=== PATIENT | male | born 1970 | race Caucasian/White ===

== ENCOUNTER 2021-11-21 00:05 | Inpatient (IN) | payer OTHER ==
[2021-11-21] MEDS ORDERED: SODIUM CHLORIDE 0.9% 1,000 ML IV STA (00:24)
[2021-11-21] MEDS ORDERED: Alteplase PER PHARMACY Stroke 1 EACH MISC MISCELLANE PRN (00:24)
--- NOTE | 2021-11-21 00:26 | ED ---
Neuro HPI - General Chief Complaint: Neuro Symptoms/Deficit Stated Complaint: Jaw Pain Time Seen by Provider: 11/21/21 00:19 Source: patient, RN notes reviewed, old records reviewed Mode of arrival: wheelchair Limitations: no limitations - History of Present Illness Is the patient presenting with stroke symptoms?: Yes Last Known Well Date: 11/20/21 Last Known Well Time: 21:00 -: hour(s) (3.5) Initial Comments: This is a 51-year-old male DF for evaluation patient has history of TIA with right-sided facial droop and drooling. Patient coming in today for evaluation of right-sided facial weakness and complete aphasia. Patient unable to answer questions he cannot has had in agreement she is had a disagreement. Patient has no weakness of arms or legs. Initial presents by private vehicle to EMS with significant other for evaluation. Patient's significant other [facility] 9 PM and came back to find patient in this condition with inability to speak and confusion. No change in symptoms since he began. Location: speech, right face History of same: No Place: home Severity: severe Quality: constant Worsens With: none On Anticoagulants: No Context: gradual onset Associated Symptoms: denies other symptoms Treatments Prior to Arrival: none - Related Data Home Medications: Home Medications Medication Instructions Recorded Confirmed QUEtiapine [SEROquel] 50 mg PO HS 02/09/15 02/11/15 Salmeterol 50 mcg (MHU) [Serevent 2 puff INHALATION DAILY PRN 02/09/15 02/11/15 Diskus] Allergies/Adverse Reactions: Allergies Allergy/AdvReac Type Severity Reaction Status Date / Time No Known Allergies Allergy Verified 11/21/21 00:21 Review of Systems ROS Statement: Those systems with pertinent positive or pertinent negative responses have been documented in the HPI. ROS Other: All systems not noted in ROS Statement are negative. General Exam - General Exam Comments Initial Comments: NIH of 10 Right facial droop with aphasia Limitations: no limitations General appearance: alert, in no apparent distress, anxious, in distress Head exam: Present: atraumatic, normocephalic, normal inspection Eye exam: Present: normal appearance, PERRL, EOMI. Absent: scleral icterus, conjunctival injection, periorbital swelling ENT exam: Present: normal exam, mucous membranes moist Neck exam: Present: normal inspection. Absent: tenderness, meningismus, lymphadenopathy Respiratory exam: Present: normal lung sounds bilaterally. Absent: respiratory distress, wheezes, rales, rhonchi, stridor Cardiovascular Exam: Present: regular rate, normal rhythm, normal heart sounds. Absent: systolic murmur, diastolic murmur, rubs, gallop, clicks GI/Abdominal exam: Present: soft, normal bowel sounds. Absent: distended, tenderness, guarding, rebound, rigid Extremities exam: Present: normal inspection, full ROM, normal capillary refill. Absent: tenderness, pedal edema, joint swelling, calf tenderness Back exam: Present: normal inspection Neurological exam: Present: alert, oriented X3, CN II-XII intact Psychiatric exam: Present: normal affect, normal mood Skin exam: Present: warm, dry, intact, normal color. Absent: rash Stroke MDM - Lab Data Result diagrams: 11/21/21 00:30 Lab Results 11/21/21 11/21/21 11/21/21 Range/Units 00:28 00:30 00:30 WBC 9.4 (3.8-10.6) k/uL RBC 4.78 (4.30-5.90) m/uL Hgb 14.8 (13.0-17.5) gm/dL Hct 43.9 (39.0-53.0) % MCV 91.9 (80.0-100.0) fL MCH 30.9 (25.0-35.0) pg MCHC 33.6 (31.0-37.0) g/dL RDW 13.2 (11.5-15.5) % Plt Count 305 (150-450) k/uL MPV 8.1 Neutrophils % 61 % Lymphocytes % 27 % Monocytes % 5 % Eosinophils % 3 % Basophils % 0 % Neutrophils # 5.7 (1.3-7.7) k/uL Lymphocytes # 2.6 (1.0-4.8) k/uL Monocytes # 0.5 (0-1.0) k/uL Eosinophils # 0.3 (0-0.7) k/uL Basophils # 0.0 (0-0.2) k/uL PT 10.4 (9.0-12.0) sec INR 0.9 (<1.2) APTT 25.8 (22.0-30.0) sec POC Glucose (mg/dL) 142 H (75-99) mg/dL POC Glu Customer Resource Specialist ID Chika Krueger - NIH Stroke Scale 1a. Level of Consciousness: (0) alert 1b. LOC Questions: (2) answers no questions correctly (Patient cannot has had but cannot speak to answer) 1c. LOC Commands: (0) performs tasks correctly 2. Best Gaze: (0) normal 3. Visual: (0) no visual loss 4. Facial Palsy: (2) partial paralysis (Right side of face) 5a. Motor Arm Left: (0) no drift 5b. Motor Arm Right: (0) no drift 6a. Motor Leg Left: (0) no drift 6b. Motor Leg Right: (0) no drift 7. Limb Ataxia: (0) absent 8. Sensory: (0) normal 9. Best Language: (un) mute/global aphasia 10. Dysarthria: (1) mild/moderate dysarthria 11. Extinction/Inattention: (0) no abnormality - Thrombolytic Inclusion/Exclusion Thrombolytic Inclusion Criteria: Symptom Onset < 4.5 h - Medical Decision Making 51 male to the emergency department for evaluation of acute CVA less than 3-1/2 hours of onset upon arrival to ER. Patient TPA candidate given TPA. Patient will be admitted for further evaluation by neurology and monitoring of TPA - Radiology Data Radiology results: report reviewed (CT brain negative for acute disease CTA may show early ischemia), image reviewed - EKG Data -: EKG Interpreted by Me (EKG is sinus rhythm 92 NV 136 QRS 86 QTc 407) Past Medical History Past Medical History: Asthma Additional Past Medical History / Comment(s): hx of TIA. Pts drooling on right side of face. Pt was last seen normal at History of Any Multi-Drug Resistant Organisms: None Reported Past Surgical History: No Surgical Hx Reported Past Anesthesia/Blood Transfusion Reactions: No Reported Reaction Past Psychological History: No Psychological Hx Reported Smoking Status: Current every day smoker Past Alcohol Use History: None Reported Past Drug Use History: Marijuana - Past Family History Mother Family Medical History: No Reported History Course Vital Signs 11/21/21 11/21/21 11/21/21 00:14 01:12 01:14 Temperature 98.5 F 98.2 F 98.2 F Pulse Rate 96 80 80 Respiratory 18 18 18 Rate Blood Pressure 152/87 151/94 145/94 O2 Sat by Pulse 98 98 98 Oximetry - Reevaluation(s) Reevaluation #1: 11/21/21 00:58 Medical record is reviewed Reevaluation #2: 11/21/21 00:58 Code Alteplace was placed on patient presentation in room with evaluation Reevaluation #3: 11/21/21 00:58 CT brain scan is negative we can go ahead with alteplase administration 11/21/21 00:58 Spoke with family member as well as patient at length, patient does wish to go forward with alteplase 11/21/21 01:25 Dr. Rodgers does agree to go forward with TPA Reevaluation #4: 11/21/21 01:25 Spoke with family regarding findings, questions are answered - Consultations Consultation #1: Spoke with sound who is agreeable to admit this patient Critical Care Time Critical Care Time: Yes Total Critical Care Time: 31 Disposition Clinical Impression: Cerebrovascular accident (CVA) Disposition: ADMITTED IP TO THIS [facility] Condition: Serious Is patient prescribed a controlled substance at d/c from ED?: No Referrals: None,Stated [Primary Care Provider] - 1-2 days
[2021-11-21 00:29] LABS: Glucose,Whole Blood 142 mg/dL (75-99)
[2021-11-21] MEDS ORDERED: ALTEPLASE 55 MG in EMPTY BAG 1 BAG IV STA (00:29)
[2021-11-21] MEDS ORDERED: ALTEPLASE BOLUS FOR STROKE 6 MG in EMPTY SYRINGE 1 SYR IV STA (00:29)
[2021-11-21 00:40] LABS: Basophils % (A) 0 %; Eosinophils # (A) 0.3 k/uL (0-0.7); Eosinophils % (A) 3 %; HCT 43.9 % (39.0-53.0); HGB 14.8 gm/dL (13.0-17.5); Lymphocytes # (A) 2.6 k/uL (1.0-4.8); Lymphocytes % (A) 27 %; MCH 30.9 pg (25.0-35.0); MCHC 33.6 g/dL (31.0-37.0); MCV 91.9 fL (80.0-100.0); Mean Platelet Volume 8.1; Monocytes # (A) 0.5 k/uL (0-1.0); Monocytes % (A) 5 %; Neutrophils # (A) 5.7 k/uL (1.3-7.7); Neutrophils % (A) 61 %; Platelet Count 305 k/uL (150-450); RBC 4.78 m/uL (4.30-5.90); RDW 13.2 % (11.5-15.5); WBC 9.4 k/uL (3.8-10.6)
--- NOTE | 2021-11-21 00:53 | CT ---
EXAMINATION TYPE: CT brain wo con for TPA DATE OF EXAM: 11/21/2021 COMPARISON: None HISTORY: stroke CT DLP: 1562.1 mGycm Automated exposure control for dose reduction was used. Ventricles have normal size. There is no mass effect or midline shift. There is no sign of intracrani al hemorrhage calvarium is intact. Skull base is intact. There is normal aeration of the mastoid sinu ses. IMPRESSION: Negative unenhanced head CT scan.
[2021-11-21 00:56] LABS: INR 0.9 (<1.2); Partial Thromboplastin Time 25.8 sec (22.0-30.0); Prothrombin Time 10.4 sec (9.0-12.0)
--- NOTE | 2021-11-21 00:57 | XR ---
EXAMINATION TYPE: XR chest 1V portable DATE OF EXAM: 11/21/2021 COMPARISON: NONE HISTORY: Weakness TECHNIQUE: Single view FINDINGS: Heart and mediastinum are normal. Lungs are clear. Diaphragm is normal. Bony thorax appears normal. IMPRESSION: Normal chest.
--- NOTE | 2021-11-21 01:17 | CT ---
EXAMINATION TYPE: CT angio head neck DATE OF EXAM: 11/21/2021 COMPARISON: None HISTORY: stroke CT DLP: 1562.1 mGycm Automated exposure control for dose reduction was used. CONTRAST: Performed with IV Contrast, patient injected with 65 mL of Isovue 370. Images obtained from the aortic arch to the vertex of the brain with IV contrast. There is bullous pulmonary emphysema noted at the upper lung acosta. There is normal branching patter n of the great vessels of the aortic arch. There is arterial flow in both subclavian arteries. There is arterial flow in the common internal and external carotid arteries bilaterally. There is wide wadsworth ncy of the carotid artery bifurcations. There is arterial flow in both vertebral arteries. There is n o evidence of carotid or vertebral artery aneurysm or dissection. There is no mass effect. There is arterial flow in the vertebral basilar artery system. There is arterial flow in the anterior middle and posterior cerebral arteries bilaterally. There is a very small A1 segment of the right an terior cerebral artery. The right anterior cerebral artery probably fills significantly through the a nterior communicating artery from the left side. There is no evidence of intracranial aneurysm or lee vascularity. There is normal enhancement of the venous sinuses. IMPRESSION: Negative CT angiogram of the neck. Small proximal right anterior cerebral artery with filling distally probably through the anterior co mmunicating artery. This is fusiform and not likely acquired stenosis.
[2021-11-21] MEDS ORDERED: MORPHINE SULFATE 4 MG/ML SYRINGE IV PRN (01:26)
[2021-11-21] MEDS ORDERED: NALOXONE 0.4 MG/ML 1 ML VIAL IV PRN (01:26)
[2021-11-21] MEDS ORDERED: SODIUM CHLORIDE 0.9% 50 ML MINI-BAG IV ONE ×2 (01:29→02:29)
[2021-11-21 01:38] LABS: Albumin 4.4 g/dL (3.5-5.0); Total Protein 7.5 g/dL (6.3-8.2)
[2021-11-21 01:39] LABS: Calcium 9.6 mg/dL (8.4-10.2); Potassium 4.1 mmol/L (3.5-5.1); Total Bilirubin 0.6 mg/dL (0.2-1.3)
[2021-11-21] MEDS: SODIUM CHLORIDE 0.9% 1,000 ML IV SCH ×3 (01:42→23:00)
--- NOTE | 2021-11-21 04:50 | P.HPIM ---
History of Present Illness H&P Date: 11/21/21 Chief Complaint: right facial droop, aphasia 51 year oldmale with moderate persistent asthma patient presented due to right sided facial weakness and aphasia. patient unable to provide any meaningful history . reports that this morning he reported some numbness over this right lower extremity . 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 he seemed to be fiine for the rest of the day, then around 9 pm she left to the store, and upon coming back home, she noticed that he was not speaking and had right sided facial droop, no other reported weakness. code stroke called, and patient deemed to be a candidate for tpa. CT of the brain and CTA of the brain and neck , no acute pathology vital signs , blood work , unremarkable covid negative Review of Systems unable due to complete aphasia Past Medical History Past Medical History: Asthma Additional Past Medical History / Comment(s): hx of TIA. Pts drooling on right side of face. Pt was last seen normal at History of Any Multi-Drug Resistant Organisms: None Reported Past Surgical History: No Surgical Hx Reported Past Anesthesia/Blood Transfusion Reactions: No Reported Reaction Past Psychological History: No Psychological Hx Reported Smoking Status: Current every day smoker Past Alcohol Use History: None Reported Past Drug Use History: Marijuana - Past Family History Mother Family Medical History: No Reported History Medications and Allergies Home Medications Medication Instructions Recorded Confirmed Type QUEtiapine [SEROquel] 50 mg PO HS 02/09/15 02/11/15 History Salmeterol 50 mcg (MHU) [Serevent 2 puff INHALATION DAILY PRN 02/09/15 02/11/15 History Diskus] Allergies Allergy/AdvReac Type Severity Reaction Status Date / Time No Known Allergies Allergy Verified 11/21/21 00:21 Physical Exam Vitals: Vital Signs Temp Pulse Resp BP Pulse Ox 11/21/21 04:34 73 18 145/90 97 11/21/21 04:19 76 18 148/93 97 11/21/21 04:04 72 18 142/92 97 11/21/21 03:49 75 16 149/92 98 11/21/21 03:34 78 16 138/94 98 11/21/21 03:19 74 18 144/95 98 11/21/21 03:04 76 18 144/97 98 11/21/21 02:49 72 16 148/94 98 11/21/21 02:34 71 16 147/94 98 11/21/21 02:19 98.2 F 75 18 145/95 98 11/21/21 02:04 77 18 148/97 98 11/21/21 02:02 98.0 F 70 16 148/97 98 11/21/21 01:19 98.1 F 78 16 145/94 98 11/21/21 01:12 98.2 F 80 18 151/94 98 11/21/21 01:04 81 18 115/84 98 11/21/21 00:50 98.2 F 80 18 149/92 97 11/21/21 00:35 98.2 F 80 18 145/94 98 11/21/21 00:14 98.5 F 96 18 152/87 98 Intake and Output 11/20/21 11/20/21 11/21/21 14:59 22:59 06:59 Other: Weight 67.767 kg Constitutional: No acute distress, cooperative Eyes: Anicteric sclerae, moist conjunctiva, Pupils equal round reactive to light ENMT: NC/AT Oropharynx clear, no erythema, or exudates Neck: Supple,no masses, or JVD No carotid bruits No thyromegaly Lungs: Clear to auscultation Clear to percussion Normal respiratory effort, no accessory muscle use Cardiovascular: Heart regular in rate and rhythm, No murmurs, gallops, or rubs No peripheral edema Abdominal: Soft Nontender, no guarding, rebound or rigidity Abdomen moving with respiration Normoactive bowel sounds No hepatomegaly, No splenomegaly No palpable mass No abdominal wall hernia noted Skin: Normal temperature, tone, texture, turgor No induration No subcutaneous nodules No rash, lesions No ulcers Extremities: No digital cyanosis clubbing of fingers bilaterally Pedal pulses intact and symmetrical Radial pulses intact and symmetrical No calf tenderness Psychiatric: Alert , aphasic Neuro Muscles Strength 4/5 in all 4 extremities Sensation to light touch grossly present throughout Cranial nerves II-XII grossly intact , complete aphasia No focal sensory deficits finger nose exam intact Lymphatics: no palpable cervical or supraclavicular , or inguinal lymph nodes Results CBC & Chem 7: 11/21/21 00:30 11/21/21 00:30 Labs: Abnormal Lab Results - Last 24 Hours (Table) 11/21/21 11/21/21 Range/Units 00:28 00:30 BUN 26 H (9-20) mg/dL Glucose 105 H (74-99) mg/dL POC Glucose (mg/dL) 142 H (75-99) mg/dL Assessment and Plan Assessment: stroke ,s/p tpa neuro consult fall precautions PT eval neuro checks q1hr monitor vital signs keep BP < 180/110 no antiplatelet or antithrombotics for at least 24 hours check echocardiogram CTA of head and neck no acute pathology ct of brain , no acute pathology check lipid panel check TSH check A1c moderate persistent asthma , resume inhalers prn duo neb full code mechanical DVT PPX anticipated length of stay < 2 midnights
[2021-11-21 05:48] LABS: Glucose,Whole Blood 157 mg/dL (75-99)
--- NOTE | 2021-11-21 11:33 | P.CNNES ---
History of Present Illness Consult date: 11/21/21 Requesting physician: Erich Doty Reason for Consult: CVA History of Present Illness: Patient is a 51-year-old left-handed male came to the hospital applications [facility] past midnight at 12:05 AM for acute onset of aphasia. Patient not able to provide any history. I spoke to patient's significant other on the phone, who stated that she went to go groceries at 9 PM and he was taking a nap at that time. She came back at around 10:30 PM, tried to wake him up and he was noted to have facial droop and was not able to speak. I asked patient's friend, when she saw him perfectly normal state of health, she states was 7:30 PM before he went to take a nap. Apparently patient's girlfriend told a different story to the ER, as it is documented in the ED report, that he was fine at 9 PM when she went to the groceries and when she came back he had stroke symptoms. Vital signs arrival blood pressure 152/87, pulse of 96, temperature 98.5. Blood test shows normal CBC, PT/PTT, normal chem 20. Troponin negative. Mello virus PCR negative. Computed tomography scan of head is negative. I personally rev iewed computed tomography scan of the head and shows no acute process. No hyperdensity. CTA of head showed small proximal right anterior cerebral artery with filling distally proximally through the anterior communicating artery. This is a fusiform and not likely acquired stenosis. CTA of the neck is reported as negative. I reviewed CTA of head and neck with Dr. Nicole, who feels there is left MCA branch occlusion and some loss of farrell-white junction noted on CT and CTA. EKG shows normal sinus rhythm. Chest x-ray is normal. Patient does not take any medication at home. Patient was evaluated in the emergency department and stroke code was activated. Dr. Wesley recommended TPA based upon NIH stroke scale of 7 as per documentation, although one place in the report mentioned NIH stroke scale of 10. Patient denies any diabetes he does have hypertension but does not take any medication. He does not take any antiplatelet medication at home. He smokes marijuana. No alcohol. He has smoked less than half pack per day since age 18. Patient's friend denies any history of hypertension for the last 5 years that she knows him. Patient has slipped coming out of the door and something fell on his head, as he was coming out of the door with his hands fall. He did not lose consciousness. This happened 24 hours prior to his stroke. Review of Systems Patient denies any headache, double vision, chest pain, abdominal pain, nausea vomiting diarrhea. No problem with control of urine. No vertigo. No weakness. No rash. No loss of hearing. No weight loss. Past Medical History Past Medical History: Asthma Additional Past Medical History / Comment(s): hx of TIA. Pts drooling on right side of face. Pt was last seen normal at History of Any Multi-Drug Resistant Organisms: None Reported Past Surgical History: No Surgical Hx Reported Past Anesthesia/Blood Transfusion Reactions: No Reported Reaction Past Psychological History: No Psychological Hx Reported Smoking Status: Current every day smoker Past Alcohol Use History: None Reported Past Drug Use History: Marijuana - Past Family History Mother Family Medical History: No Reported History Medications and Allergies Home Medications Medication Instructions Recorded Confirmed Type No Known Home Medications 11/21/21 11/21/21 History Allergies Allergy/AdvReac Type Severity Reaction Status Date / Time No Known Allergies Allergy Verified 11/21/21 08:55 Physical Examination - Vital Signs Vital Signs: Vital Signs Temp Pulse Pulse Pulse Resp BP BP 11/21/21 09:00 71 18 150/100 11/21/21 08:00 96.7 F L 66 18 147/99 11/21/21 07:00 73 18 147/94 11/21/21 06:00 97.9 F 64 23 137/97 11/21/21 05:19 72 18 144/92 11/21/21 05:04 71 16 148/90 11/21/21 05:00 70 16 144/93 11/21/21 04:49 71 16 142/90 11/21/21 04:34 73 18 145/90 11/21/21 04:19 76 18 148/93 11/21/21 04:04 72 18 142/92 11/21/21 03:49 75 16 149/92 11/21/21 03:34 78 16 138/94 11/21/21 03:19 74 18 144/95 11/21/21 03:04 76 18 144/97 11/21/21 02:49 72 16 148/94 11/21/21 02:34 71 16 147/94 11/21/21 02:19 98.2 F 75 18 145/95 11/21/21 02:04 77 18 148/97 11/21/21 02:02 98.0 F 70 16 148/97 11/21/21 01:19 98.1 F 78 16 145/94 11/21/21 01:12 98.2 F 80 18 151/94 11/21/21 01:04 81 18 115/84 11/21/21 00:50 98.2 F 80 18 149/92 11/21/21 00:35 98.2 F 80 18 145/94 11/21/21 00:14 98.5 F 96 18 152/87 Pulse Ox 11/21/21 09:00 97 11/21/21 08:00 96 11/21/21 07:00 96 11/21/21 06:00 95 11/21/21 05:19 97 11/21/21 05:04 97 11/21/21 05:00 98 11/21/21 04:49 97 11/21/21 04:34 97 11/21/21 04:19 97 11/21/21 04:04 97 11/21/21 03:49 98 11/21/21 03:34 98 11/21/21 03:19 98 11/21/21 03:04 98 11/21/21 02:49 98 11/21/21 02:34 98 11/21/21 02:19 98 11/21/21 02:04 98 11/21/21 02:02 98 11/21/21 01:19 98 11/21/21 01:12 98 11/21/21 01:04 98 11/21/21 00:50 97 11/21/21 00:35 98 11/21/21 00:14 98 Intake and Output 11/20/21 11/21/21 11/21/21 22:59 06:59 14:59 Intake Total 200 200 Output Total 0 0 Balance 200 200 Intake: Intake, IV Titration 200 200 Amount Sodium Chloride 0.9% 1, 200 200 000 ml @ 100 mls/hr IV . Q10H [facility] Rx#:[id number] Output: Urine 0 0 Other: Voiding Method Urinal Weight 66.5 kg Patient is a middle aged male, in no acute distress. Patient was sleeping, but on waking up, was alert and awake. Appears slightly groggy. Patient is still slightly groggy, easily sleeps. Patient is severely aphasic, w ith no word output. Patient cannot name, cannot repeat. He can follow verbal directions very well. He could not follow written directions. Patient has some language deficits with inability to write as well. I asked him to write "this is [place]", and he wrote "2021 [place]amis" I asked him to write "grapes are sour", and he wrote "[employer]". When I asked him to write "today is Sunday, he wrote "To Day Man". Attention, concentration and fund of knowledge is adequate. On cranial examination, pupils are equal, round and reacting to light, visual acosta are full on confrontation, with no neglect on double simultaneous stimulation. His extraocular muscles are intact with no nystagmus. Patient has severe right facial weakness, which involves the lower part more than the upper part. He has tongue protrudes to the right. Palatal elevation and sensation is decreased on the right, hearing and shoulder shrug normal, facial sensation normal. Shoulder shrug normal. On muscle strength testing, there is no pronator drift and the strength is normal in arms and legs distally and proximally. Deep tendon reflexes are trace to 1 bilaterally and plantars are withdrawal bilaterally. Sensory to touch is equal with no neglect on double simultaneous stimulation. Cerebellar function showed no ataxia for [id number] testing. No dysdiadochokinesia. Tone and bulk of muscles normal. Gait deferred. On general examination, there is no carotid bruit or murmur, S1-S2 audible. Abdomen is soft nontender. No organomegaly. Bowel sounds present. Chest is clear. Peripheral pulses are present. No edema. Patient has a left black eye, from a fall that occurred couple days ago. Patient's current NIH stroke scale is 7, scoring 0, 2, 0, 0, 0, 2, 0, 0, 0, 0, 0, 0, 1, 2, 0. Results - Laboratory Findings CBC and BMP: 11/21/21 00:30 11/21/21 00:30 Abnormal Lab Findings: Abnormal Labs 11/21/21 11/21/21 11/21/21 00:28 00:30 05:47 BUN 26 H Glucose 105 H POC Glucose (mg/dL) 142 H 157 H Assessment and Plan Assessment: * Probable Acute ischemic stroke with severe dysarthria, possible expressive aphasia and right facial weakness. Patient is status post TPA. His current NIH stroke scale is 7. * Severe dysphagia due to above, failed swallow. * Hypertension, not being treated (patient's significant other denies any history of hypertension) * Tobacco use * Marijuana use Plan: * Patient has received TPA. Follow post-TPA orders. * Avoid hypotension. * MRI of the brain to evaluate for acute stroke. * MRA of the brain, MRA of neck with and without contrast to rule out carotid dissection, occlusion. * 2-D echo with bubble study to rule out PFO. Patient may need MARLENE. * Fasting lipid panel, * Hemoglobin A1c 6.0. * Complete tobacco cessation * Telemetric monitoring, rule out arrhythmia. So far telemetry monitoring only showing sinus rhythm. * No antiplatelet medication or anticoagulants for 24 hours post-TPA. * We will review CTA of head and neck. * Discussed with patient's significant other in detail. Time with Patient: Greater than 30
[2021-11-21] MEDS ORDERED: LORazepam 2 MG/ML INJ IV PRN (11:40)
--- NOTE | 2021-11-21 12:22 | P.CNPUL ---
History of Present Illness Consult date: 11/21/21 Requesting physician: Latosha Hester Reason for consult: other (Acute CVA) Chief complaint: aphasia History of present illness: This is a 51-year-old white male with history of mild asthma, patient presented to the hospital past midnight around 12:05 AM, patient came in with an acute onset of difficulty with his speech. Patient could not provide any history, but according to ER notes and the other physicians on the case, patient came in with acute CVA symptoms. Workup including CT angiogram of the neck and head, was basically unremarkable, CT of the head showed small proximal right anterior cerebral artery with filling distally proximally through the anterior communicating artery. At any rate the patient received TPA, admitted to the ICU, his initial NIH stroke scale was 7. Considering the patient received TPA, he was admitted to the ICU, and I was asked to see him on consultation. I saw the patient this morning, he is hemodynamically stable, not in any distress, however he remains aphasic. No other neurological deficit was appreciated. Patient is yet to be seen by neurology on consultation. Review of Systems ROS unobtainable: due to mental status Past Medical History Past Medical History: Asthma Additional Past Medical History / Comment(s): hx of TIA. Pts drooling on right side of face. Pt was last seen normal at History of Any Multi-Drug Resistant Organisms: None Reported Past Surgical History: No Surgical Hx Reported Past Anesthesia/Blood Transfusion Reactions: No Reported Reaction Past Psychological History: No Psychological Hx Reported Smoking Status: Current every day smoker Past Alcohol Use History: None Reported Past Drug Use History: Marijuana - Past Family History Mother Family Medical History: No Reported History Medications and Allergies Home Medications Medication Instructions Recorded Confirmed Type No Known Home Medications 11/21/21 11/21/21 History Allergies Allergy/AdvReac Type Severity Reaction Status Date / Time No Known Allergies Allergy Verified 11/21/21 08:55 Physical Exam Vitals: Vital Signs Temp Pulse Pulse Pulse Resp BP BP 11/21/21 11:22 11/21/21 10:36 72 15 11/21/21 10:00 70 16 136/84 11/21/21 09:00 71 18 150/100 11/21/21 08:00 96.7 F L 66 18 147/99 11/21/21 07:00 73 18 147/94 11/21/21 06:00 97.9 F 64 23 137/97 11/21/21 05:19 72 18 144/92 11/21/21 05:04 71 16 148/90 11/21/21 05:00 70 16 144/93 11/21/21 04:49 71 16 142/90 11/21/21 04:34 73 18 145/90 11/21/21 04:19 76 18 148/93 11/21/21 04:04 72 18 142/92 11/21/21 03:49 75 16 149/92 11/21/21 03:34 78 16 138/94 11/21/21 03:19 74 18 144/95 11/21/21 03:04 76 18 144/97 11/21/21 02:49 72 16 148/94 11/21/21 02:34 71 16 147/94 11/21/21 02:19 98.2 F 75 18 145/95 11/21/21 02:04 77 18 148/97 11/21/21 02:02 98.0 F 70 16 148/97 11/21/21 01:19 98.1 F 78 16 145/94 11/21/21 01:12 98.2 F 80 18 151/94 11/21/21 01:04 81 18 115/84 11/21/21 00:50 98.2 F 80 18 149/92 11/21/21 00:35 98.2 F 80 18 145/94 11/21/21 00:14 98.5 F 96 18 152/87 Pulse Ox 11/21/21 11:22 95 11/21/21 10:36 95 11/21/21 10:00 96 11/21/21 09:00 97 11/21/21 08:00 96 11/21/21 07:00 96 11/21/21 06:00 95 11/21/21 05:19 97 11/21/21 05:04 97 11/21/21 05:00 98 11/21/21 04:49 97 11/21/21 04:34 97 11/21/21 04:19 97 11/21/21 04:04 97 11/21/21 03:49 98 11/21/21 03:34 98 11/21/21 03:19 98 11/21/21 03:04 98 11/21/21 02:49 98 11/21/21 02:34 98 11/21/21 02:19 98 11/21/21 02:04 98 11/21/21 02:02 98 11/21/21 01:19 98 11/21/21 01:12 98 11/21/21 01:04 98 11/21/21 00:50 97 11/21/21 00:35 98 11/21/21 00:14 98 Intake and Output 11/20/21 11/21/21 11/21/21 22:59 06:59 14:59 Intake Total 200 300 Output Total 0 650 Balance 200 -350 Intake: Intake, IV Titration 200 300 Amount Sodium Chloride 0.9% 1, 200 300 000 ml @ 100 mls/hr IV . Q10H [facility] Rx#:[id number] Output: Urine 0 650 Other: Voiding Method Urinal Weight 66.5 kg Physical Exam: Revealed 51-year-old white male, in no distress, follows simple instructions, however he is noted to be aphasic. HEENT: Micheline, EOMI, no nystagmus, right facial weakness is noted. Tongue tamica ates to the right. [Neck is supple.] [No neck masses.] [No thyromegaly.] [No JVD.] Chest: [Clear throughout, no crackles, no rhonchi, no wheezes.] Cardiac Exam: [Normal S1 and S2, no S3 gallop, no murmur.] Abdomen: [Soft, nontender, no megaly, no rebound, no guarding, normal bowel sounds.] Extremities: [No clubbing, no edema, no cyanosis.] Neurological Exam:pupils are equal, round and reacting to light, visual acosta are full on confrontation, with no neglect on double simultaneous stimulation. His extraocular muscles are intact with no nystagmus. Patient has right facial weakness, tongue deviates to the right. Musculoskeletal: No deformities, no limitation in range of motion. Tone and bulk of muscles is normal. Results - Laboratory Findings CBC and BMP: 11/21/21 00:30 11/21/21 00:30 PT/INR, D-dimer PT 10.4 sec (9.0-12.0) 11/21/21 00:30 INR 0.9 (<1.2) 11/21/21 00:30 Abnormal lab findings: Abnormal Labs 11/21/21 11/21/21 11/21/21 00:28 00:30 05:47 BUN 26 H Glucose 105 H POC Glucose (mg/dL) 142 H 157 H - Diagnostic Findings CT scan - chest: image reviewed (No active disease.) Additional studies: CT angiography of the neck and brain CT were noted as noted in HPI. Assessment and Plan Assessment: Acute ischemic CVA with severe dysarthria and expressive aphasia and possibly right facial weakness. Status post TPA. Severe dysphagia secondary to above. History of mild asthma presently asymptomatic. History of nicotine dependence. History of hypertension. Recommendation: Continue post TPA orders. MRI of the brain is pending. 2-D echocardiogram with bubble is pending to rule out PFO. Continue present supportive care measures. We'll continue to monitor in the ICU for the next 24 hours. We'll continue to follow Time with Patient: Greater than 30
--- NOTE | 2021-11-21 13:01 | ECHOF ---
Referral Reason:Thrombus MEASUREMENTS -------- HEIGHT: 182.9 cm WEIGHT: 66.2 kg BP: 103/65 RVIDd: 3.1 cm (< 3.3) IVSd: 1.1 cm (0.6 - 1.1) LVIDd: 3.8 cm (3.9 - 5.3) LVPWd: 0.9 cm (0.6 - 1.1) IVSs: 1.6 cm LVIDs: 2.5 cm LVPWs: 1.5 cm LA Diam: 3.2 cm (2.7 - 3.8) LAESV Index (A-L): 18.13 ml/m Ao Diam: 3.1 cm (2.0 - 3.7) AV Cusp: 2.2 cm (1.5 - 2.6) MV EXCURSION: 15.293 mm (> 18.000) MV EF SLOPE: 95 mm/s (70 - 150) EPSS: 0.8 cm MV E Zeke: 0.85 m/s MV DecT: 185 ms MV A Zeke: 0.98 m/s MV E/A Ratio: 0.87 RAP: 5.00 mmHg RVSP: 21.94 mmHg FINDINGS -------- Sinus rhythm. This was a technically adequate study. The left ventricular size is normal. Left ventricular wall thickness is normal. Overall left vent ricular systolic function is normal with, an EF between 55 - 60 %. The diastolic filling pattern is normal for the age of the patient 10.22. The right ventricle is normal in size. Normal LA size by volume 22+/-6 ml/m2. The right atrial size is normal. Interatrial and interventricular septum intact. The aortic valve is trileaflet, and appears structurally normal. No aortic stenosis or regurgitation. The mitral valve is normal. There is trace mitral regurgitation. The tricuspid valve appears structurally normal. Mild tricuspid regurgitation present. Right vent ricular systolic pressure is normal at < 35 mmHg. Trace/mild (physiologic) pulmonic regurgitation. The aortic root size is normal. Normal inferior vena cava with normal inspiratory collapse consistent with estimated right atrial pre ssure of 5 mmHg. There is no pericardial effusion. CONCLUSIONS -------- 1. Left ventricular wall thickness is normal. 2. Overall left ventricular systolic function is normal with, an EF between 55 - 60 %. 3. Normal LA size by volume 22+/-6 ml/m2. 4. The aortic valve is trileaflet, and appears structurally normal. No aortic stenosis or regurgitati on. 5. There is trace mitral regurgitation. 6. Mild tricuspid regurgitation present. 7. Trace/mild (physiologic) pulmonic regurgitation. 8. There is no pericardial effusion. ENGINE LATHE SET UP OPERATOR: Carole Cortez RDCS
[2021-11-21] MEDS: IPRATROPIUM-ALBUTEROL 3 ML NEB INHALATION PRN (16:33)
--- NOTE | 2021-11-21 19:23 | MR ---
MRI OF THE BRAIN WO History: Acute stroke COMPARISON: Same-day CT TECHNIQUE: Multiplanar multisequence MR imaging of the brain was obtained without the use of IV cont rast. FINDINGS: There is moderate restricted diffusion in the left temporal lobe consistent with acute ischemic infar ct. Additional tiny subcentimeter focus of restricted diffusion is seen within the posterior left tem poral lobe. No acute intracranial hemorrhage or abnormal extra-axial fluid collection are noted.There is no midline shift or mass effect. Remainder of the brain parenchyma is otherwise normal in signal intensity and morphology. Visualized vascular flow voids are unremarkable. Visualized paranasal sinuses and mastoid air cells are patent and aerated. IMPRESSION: Acute/subacute left temporoparietal lobe ischemic infarct with tiny embolic infarct as described.
--- NOTE | 2021-11-21 19:27 | MR ---
EXAMINATION TYPE: MR angio head wo/neck wo/w con DATE OF EXAM: 11/21/2021 COMPARISON: Same-day CTA. HISTORY: Prior CT on synapse, no prior MR acute CVA, R/O carotid dissection TECHNIQUE: Time of flight images focusing on the [place] of [place] were performed without contrast.. 2-D and 3-D postprocessing imaging is performed. FINDINGS: Head: The intracranial internal carotid, middle cerebral, posterior cerebral, vertebrobasilar arterial syst em and [place] of [place] are grossly unremarkable. No evidence of high-grade stenosis or dissection. Neck: There is normal three-vessel aortic arch branching. The cervical common carotid, internal carotid and vertebral arteries are grossly unremarkable. No evidence of high-grade stenosis or dissection. Impression: No acute abnormality of the MRA head and neck.
[2021-11-21 20:30] LABS: Amphetamine Screen,Urine Detected (NotDetected); Barbiturate Screen,Urine Not Detected (NotDetected); Benzodiazepines Screen,Urine Not Detected (NotDetected); Cocaine Screen,Urine Not Detected (NotDetected); Methadone Screen, Urine Not Detected (NotDetected); Opiate Screen,Urine Not Detected (NotDetected); Oxycodone Screen, Urine Not Detected (NotDetected); Phencyclidine Screen,Urine Not Detected (NotDetected); Tricyclic Antidepressant,Urine Not Detected (NotDetected); Urn Cannabinoid Scrn Detected (NotDetected)
--- NOTE | 2021-11-22 00:25 | CT ---
EXAMINATION TYPE: CT brain wo con DATE OF EXAM: 11/22/2021 COMPARISON: 11/21/2021 HISTORY: 24 hour follow up after TPA CT DLP: 1114.4 mGycm Automated exposure control for dose reduction was used. Ventricles of normal size. There is no mass effect or midline shift. There is no sign of intracranial hemorrhage. There is 3.5 cm somewhat rounded area of decreased density in the left posterior frontal lobe farrell and white matter. The skull base is intact. There is normal aeration of the mastoid sinuse s. Calvarium is intact. IMPRESSION: There is evidence of acute cortical infarct left posterior frontal lobe which appears new compared to the CT scan yesterday. No hemorrhage.
[2021-11-22] MEDS ORDERED: ASPIRIN 300 MG SUPP RECTAL SCH (02:30)
[2021-11-22 06:40] LABS: Basophils % (A) 0 %; Eosinophils # (A) 0.2 k/uL (0-0.7); Eosinophils % (A) 3 %; HCT 46.4 % (39.0-53.0); HGB 15.3 gm/dL (13.0-17.5); Lymphocytes # (A) 2.4 k/uL (1.0-4.8); Lymphocytes % (A) 28 %; MCH 30.3 pg (25.0-35.0); MCHC 33.1 g/dL (31.0-37.0); MCV 91.6 fL (80.0-100.0); Monocytes # (A) 0.4 k/uL (0-1.0); Monocytes % (A) 5 %; Neutrophils # (A) 5.2 k/uL (1.3-7.7); Neutrophils % (A) 62 %; Platelet Count 279 k/uL (150-450); RBC 5.06 m/uL (4.30-5.90); RDW 13.1 % (11.5-15.5); WBC 8.4 k/uL (3.8-10.6)
[2021-11-22 06:51] LABS: ALT 21 U/L (4-49); AST 23 U/L (17-59); African American GFR (CKD) >90 (>60 ml/min/1.73 sqM); Albumin 3.8 g/dL (3.5-5.0); Alkaline Phosphatase 118 U/L (38-126); Anion Gap 2 mmol/L; Blood Urea Nitrogen 14 mg/dL (9-20); Calcium 9.1 mg/dL (8.4-10.2); Carbon Dioxide 28 mmol/L (22-30); Chloride 105 mmol/L (98-107); Glucose 92 mg/dL (74-99); Non-African American GFR(CKD) >90 (>60 ml/min/1.73 sqM); Potassium 4.5 mmol/L (3.5-5.1); Sodium 135 mmol/L (137-145); Total Bilirubin 0.9 mg/dL (0.2-1.3); Total Protein 6.6 g/dL (6.3-8.2)
[2021-11-22] MEDS: SODIUM CHLORIDE 0.9% 1,000 ML IV SCH ×2 (08:40→17:15)
[2021-11-22] MEDS: IPRATROPIUM-ALBUTEROL 3 ML NEB INHALATION PRN ×2 (08:54→20:30)
[2021-11-22] MEDS: FORMOTEROL FUMARATE 20 MCG/2 ML NEBU INHALATION PRN ×2 (08:54→20:30)
[2021-11-22] MEDS ORDERED: ASPIRIN 81 MG PO SCH (09:00)
[2021-11-22] MEDS ORDERED: ASPIRIN 325 MG TAB PO SCH (09:00)
--- NOTE | 2021-11-22 10:28 | P.PN ---
Subjective Progress Note Date: 11/22/21 Pt has improved swallow today, has mildly improved aphasia, can say his own name with great difficulty. CTH shows evolving temporo-parietal infarct. MRA without vascular pathology. MRI Brain confirms large right temporoparietal stroke. Objective - Vital Signs Vital signs: Vital Signs Temp 98.4 F 11/22/21 08:00 Pulse 80 11/22/21 10:00 Resp 11 L 11/22/21 10:00 BP 128/104 11/22/21 10:00 Pulse Ox 94 L 11/22/21 10:00 Intake & Output 11/21/21 11/22/21 11/22/21 18:59 06:59 18:59 Intake Total 1100 1200 400 Output Total 850 925 600 Balance 250 275 -200 Weight 66 kg Intake: IV 1100 400 Sodium Chloride 0.9% 1, 1100 400 000 ml @ 100 mls/hr IV . Q10H [facility] Rx#:[id number] Intake, IV Titration 1100 100 Amount Sodium Chloride 0.9% 1, 1100 100 000 ml @ 100 mls/hr IV . Q10H [facility] Rx#:[id number] Output: Urine 850 925 600 Other: Voiding Method Urinal Urinal Urinal - Exam Gen: awake, alert HEENT: normocephalic, atraumatic, good hearing acuity, moist mucous membranes Resp: good air exchange, breathing comfortably with no accessory muscle use CVS: good distal perfusion x 4, GI: soft, NTTP, ND : no SPT, no CVAT, anderson catheter not present MSK: no pitting edema, no clubbing Neuro: moving all extremities, expressive aphasia Psych: cooperative - Labs CBC & Chem 7: 11/22/21 06:06 11/22/21 06:06 Labs: Abnormal Lab Results - Last 24 Hours (Table) 11/21/21 11/22/21 Range/Units 18:20 06:06 Sodium 135 L (137-145) mmol/L Ur Amphetamines Screen Detected H (NotDetected) U Methamphetamines Scrn Detected H (NotDetected) U Marijuana (THC) Screen Detected H (NotDetected) Assessment and Plan Assessment: Acute Stroke neuro consult fall precautions PT eval neuro checks q1hr monitor vital signs keep BP < 180/110 start ASA, atorvastatin check echocardiogram = no WMA, good EF, no thrombus, neg bubble CTA of head and neck no acute pathology ct of brain , no acute pathology; repeat with right temporoparietal infarct Moderate persistent asthma resume inhalers prn duo neb Nicotine Use recommend cessation full code mechanical DVT PPX anticipated length of stay < 2 midnights
[2021-11-22] MEDS: ATORVASTATIN 80 MG TAB PO SCH (10:57)
[2021-11-22 13:05] LABS: Chol/HDL Ratio 4.57 Ratio; LDL Cholesterol,Calculated 118.9 mg/dL (0.0-131.0); VLDL Calculation 19.44 mg/dL (5.00-40.00)
--- NOTE | 2021-11-22 13:12 | P.PN ---
Subjective Progress Note Date: 11/22/21 Principal diagnosis: Acute CVA This is a 51-year-old white male with history of mild asthma, patient presented to the hospital past midnight around 12:05 AM, patient came in with an acute onset of difficulty with his speech. Patient could not provide any history, but according to ER notes and the other physicians on the case, patient came in with acute CVA symptoms. Workup including CT angiogram of the neck and head, was basically unremarkable, CT of the head showed small proximal right anterior cerebral artery with filling distally proximally through the anterior commun icating artery. At any rate the patient received TPA, admitted to the ICU, his initial NIH stroke scale was 7. Considering the patient received TPA, he was admitted to the ICU, and I was asked to see him on consultation. I saw the patient this morning, he is hemodynamically stable, not in any distress, however he remains aphasic. No other neurological deficit was appreciated. Patient is yet to be seen by neurology on consultation. Reevaluated today on 11/22/2021, patient is basically about the same, he passed his swallow evaluation, his aphasia is very minimally improved. Repeat workup i ncluding MRI confirms large right temporoparietal stroke. Patient is being followed by urology, and he is status post TPA. Labs are about normal including CBC, basic metabolic profile, renal profile. Patient has no active pulmonary issues, and he is hemodynamically stable blood pressure seems to be a bit on the high side. Objective - Vital Signs Vital signs: Vital Signs Temp 97.8 F 11/22/21 12:00 Pulse 101 H 11/22/21 12:00 Resp 14 11/22/21 12:00 BP 138/111 11/22/21 12:00 Pulse Ox 97 11/22/21 12:00 Intake & Output 11/21/21 11/22/21 11/22/21 18:59 06:59 18:59 Intake Total 1100 1200 600 Output Total 667 023 0073 Balance 250 275 -550 Weight 66 kg Intake: IV 1100 600 Sodium Chloride 0.9% 1, 1100 600 000 ml @ 100 mls/hr IV . Q10H [facility] Rx#:[id number] Intake, IV Titration 1100 100 Amount Sodium Chloride 0.9% 1, 1100 100 000 ml @ 100 mls/hr IV . Q10H [facility] Rx#:[id number] Output: Urine 221 439 9062 Other: Voiding Method Urinal Urinal Urinal - Exam Physical Exam: Revealed 51-year-old white male, in no distress, follows simple instructions, however he is noted to be aphasic. HEENT: Micheline, EOMI, no nystagmus, right facial weakness is noted. Tongue deviates to the right. [Neck is supple.] [No neck masses.] [No thyromegaly.] [No JVD.] Chest: [Clear throughout, no crackles, no rhonchi, no wheezes.] Cardiac Exam: [Normal S1 and S2, no S3 gallop, no murmur.] Abdomen: [Soft, nontender, no megaly, no rebound, no guarding, normal bowel sounds.] Extremities: [No clubbing, no edema, no cyanosis.] Neurological Exam:pupils are equal, round and reacting to light, visual acosta are full on confrontation, with no neglect on double simultaneous stimulation. His extraocular muscles are intact with no nystagmus. Patient has right facial weakness, tongue deviates to the right. Musculoskeletal: No deformities, no limitation in range of motion. Tone and bulk of muscles is normal. - Labs CBC & Chem 7: 11/22/21 06:06 11/22/21 06:06 Labs: Abnormal Lab Results - Last 24 Hours (Table) 11/21/21 11/22/21 Range/Units 18:20 06:06 Sodium 135 L (137-145) mmol/L HDL Cholesterol 38.70 L (40.00-60.00) mg/dL Ur Amphetamines Screen Detected H (NotDetected) U Methamphetamines Scrn Detected H (NotDetected) U Marijuana (THC) Screen Detected H (NotDetected) Assessment and Plan Assessment: Acute ischemic CVA with severe dysarthria and expressive aphasia and possibly right facial weakness. Status post TPA. Severe dysphagia secondary to above. History of mild asthma presently asymptomatic. History of nicotine dependence. History of hypertension. Recommendation: Continue post TPA orders. Continue present supportive care measures. Likely transfer out of the ICU if cleared by neurology. We'll continue to follow Time with Patient: Less than 30
[2021-11-22] MEDS ORDERED: CLOPIDOGREL 75 MG TAB PO STA (15:54)
[2021-11-23] MEDS: SODIUM CHLORIDE 0.9% 1,000 ML IV SCH (02:27)
[2021-11-23 02:30] VITALS: TEMP 97.8
--- NOTE | 2021-11-23 08:44 | CONS ---
CONSULTATION This gentleman has what seems to be a CVA, probably embolic, and he has expressive aphasia and dysphagia. There is a left temporoparietal infarct on MRI and also a small branch occlusion of left middle cerebral artery. I was consulted regarding need for MARLENE to rule out a source of embolus. Patient is unable to communicate well, but he seems to get the point that we will do a MARLENE today. Apparently he received tPA and hemodynamically he is stable, but his speech is not completely back and he also has had some dysphagia issues. He does not have diabetes or hypertension, does not take any medications. He smokes marijuana and does not regularly use alcohol, according to the chart. On reviewing the chart, he is not on any specific medications. There are NO ALLERGIES. On examination, blood pressure is 140/80, pulse rate is 66 per minute, irregular. HEENT unremarkable. Fundus was not examined by me. Neck is supple. No JVD. I do not hear a carotid bruit. Heart exam reveals S1, S2 heard normally. No rub, murmur or gallop. Lungs are clear. Abdomen is soft, non-tender. Lower extremities reveal normal pulses. Central nervous system examination was not performed. EKG revealed a sinus rhythm with borderline voltage criteria for LVH. Echocardiogram revealed a normal study. IMPRESSION: 1. Acute cerebrovascular accident, embolic, status post tPA with speech issues in the form of expressive aphasia and also some dysphagia. 2. History of marijuana use. 3. No evidence of any diabetes or hypertension. RECOMMENDATIONS: I will arrange for a transesophageal echo. Will request Dr. Bishop to perform procedure. Will keep the patient n.p.o. Thank you very much for the consult. MMODL / IJN: [id number] /
[2021-11-23] MEDS ORDERED: BENZOCAINE SPRAY 1 CAN MUCOUS MEM PRN (08:52)
[2021-11-23] MEDS ORDERED: MIDAZOLAM 2 MG/2 ML VIAL ONE (08:54)
[2021-11-23] MEDS ORDERED: fentaNYL (PF) 50 MCG/ML 2 ML AMP ONE (08:54)
[2021-11-23] MEDS ORDERED: ASPIRIN 81 MG PO SCH (09:00)
[2021-11-23] MEDS ORDERED: SODIUM CHLORIDE 0.9% 1,000 ML IV SCH (09:15)
[2021-11-23] MEDS: ATORVASTATIN 80 MG TAB PO SCH (09:15)
--- NOTE | 2021-11-23 09:18 | P.PCN ---
Date of Procedure: 11/23/21 Description of Procedure: Indication: Evaluation of intracardiac embolic source in a patient with history of CVA Procedure Description: After explaining the procedure to the patient, it's risk and complications, blood pressure, heart rate and O2 saturation were monitored. The throat was sprayed with Cetacaine. Patient received 2 mg intravenous Versed, 50 mcg intravenous fentanyl. The probe was introduced into the esophagus without difficulty. Images were obtained. Following that, the probe was removed. There was no immediate complication. Findings: Left atrial size is normal, left atrial appendage is normal. The ventricle size and systolic function are normal. The aortic valve, tricuspid and pulmonic valve are normal. Mild thickening of the mitral valve leaflets was noted. No pericardial effusion was noted. Descending thoracic aorta appears to be normal. Contrast bubble study revealed no evidence of shunting across the intra-atrial septum. Doppler: Pulse wave and color Doppler were obtained and showed mild mitral and tricuspid regurgitation. There is no shunting by color Doppler study. Conclusion: 1. Normal left atrial appendage with no evidence of thrombus 2. Normal size and systolic function 3. No shunting across the intra-atrial septum 4. Mild mitral and tricuspid regurgitation with mild thickening of the mitral valve leaflets 5. Normal appearance of the descending thoracic aorta.
--- NOTE | 2021-11-23 10:06 | P.PN ---
Subjective Progress Note Date: 11/22/21 Patient was seen for a follow-up. Patient has much improved. Patient able to vocalize some, but still no intelligible speech. Still significant expressive aphasia. Comprehension is intact. Patient denies headache. Patient's urine drug screen was positive for amphetamines, methamphetamines and marijuana. Patient admitted by nodding yes fall taking Ritalin from the street. He denies using mushrooms. Denies any use of cocaine in the past. No IV drug use. Objective - Vital Signs Vital signs: Vital Signs Temp 97.8 F 11/23/21 08:00 Pulse 74 11/23/21 09:45 Resp 11 L 11/23/21 09:45 BP 116/74 11/23/21 09:45 Pulse Ox 94 L 11/23/21 09:45 Intake & Output 11/22/21 11/23/21 11/23/21 18:59 06:59 18:59 Intake Total 1300 900 Output Total 1750 950 600 Balance -450 -50 -600 Weight 66 kg Intake: IV 1300 900 Sodium Chloride 0.9% 1, 1300 900 000 ml @ 75 mls/hr IV . [id number] [facility] Rx#:[id number] Output: Urine 1750 950 600 Other: Voiding Method Urinal Urinal Urinal - Exam Patient is a middle aged male, in no acute distress. Patient does get emotional, slightly frustrated when he cannot speak. He started crying. Patient is alert awake. Patient has severe expressive aphasia. He can vocalize some sounds but no intelligible speech. His comprehension is intact. Patient able to follow verbal, and now also written commands. (He was not following written commands yesterday). Patient cannot name or repeat. I asked patient to write today is Sunday, and patient wrote "To Tad ". Attention, concentration and fund of knowledge is adequate. On cranial examination, pupils are round and reacting to light, visual acosta are full on confrontation, with no neglect. His extraocular muscles are intact with no nystagmus. Patient has moderate right facial asymmetry, central type. His tongue protrudes to the slightly to the right, not as bad as yesterday. Palatal elevation has improved and sensation normal, hearing and shoulder shrug normal, facial sensation normal. Shoulder shrug normal. On muscle strength testing, there is no pronator drift and the strength is normal in arms and legs distally and proximally. Deep tendon reflexes are symmetric plantars downgoing. Sensory to touch is equal with no neglect. Cerebellar function showed no ataxia for [id number] testing. No dys diadochokinesia. Tone and bulk of muscles normal. Gait normal. On general examination, there is no carotid bruit or murmur, S1-S2 audible. Abdomen is soft nontender. Chest is clear. Peripheral pulses are present. No edema. - Labs CBC & Chem 7: 11/22/21 06:06 11/22/21 06:06 Labs: Abnormal Lab Results - Last 24 Hours (Table) 11/22/21 Range/Units 06:06 HDL Cholesterol 38.70 L (40.00-60.00) mg/dL Assessment and Plan Assessment: * Acute ischemic stroke with expressive aphasia and right facial weakness. Patient is status post TPA. His current NIH stroke scale is 6. * Dysphagia improved, passed swallow studies. * Hypertension * Tobacco use * Urine positive for amphetamines and methamphetamines. * Marijuana use Plan: * Patient's speech has improved. He is able to make some sounds, but still no intelligible speech. Comprehension has further improved. * Permissive hypertension. Avoid hypotension. * MRI of the brain revealed acute/subacute left temporoparietal lobe ischemic infarct, with another tiny embolic infarct. * MRA of the brain, MRA of neck with and without contrast showed no large vessel occlusion. No dissection. * 2-D echo revealed normal left ventricular systolic function with EF between 55-60%. Normal left atrial size. Aortic valve is trileaflet and normal. Recommend MARLENE rule out embolic source. We will consult cardiology. * Fasting lipid panel with cholesterol 177, LDL 118, HDL 38 and triglycerides 97. We will place patient on Lipitor 40 mg. * Hemoglobin A1c 6.0. * Complete tobacco cessation * Telemetric monitoring only showing sinus rhythm. * Patient started on dual antiplatelet medications including aspirin and Plavix. * Continue aggressive speech therapy.
[2021-11-23] MEDS ORDERED: CLOPIDOGREL 75 MG TAB PO SCH (10:15)
--- NOTE | 2021-11-23 13:00 | P.PN ---
Subjective Progress Note Date: 11/23/21 Principal diagnosis: Acute CVA This is a 51-year-old white male with history of mild asthma, patient presented to the hospital past midnight around 12:05 AM, patient came in with an acute onset of difficulty with his speech. Patient could not provide any history, but according to ER notes and the other physicians on the case, patient came in with acute CVA symptoms. Workup including CT angiogram of the neck and head, was basically unremarkable, CT of the head showed small proximal right anterior cerebral artery with filling distally proximally through the anterior commun icating artery. At any rate the patient received TPA, admitted to the ICU, his initial NIH stroke scale was 7. Considering the patient received TPA, he was admitted to the ICU, and I was asked to see him on consultation. I saw the patient this morning, he is hemodynamically stable, not in any distress, however he remains aphasic. No other neurological deficit was appreciated. Patient is yet to be seen by neurology on consultation. Reevaluated today on 11/22/2021, patient is basically about the same, he passed his swallow evaluation, his aphasia is very minimally improved. Repeat workup i ncluding MRI confirms large right temporoparietal stroke. Patient is being followed by urology, and he is status post TPA. Labs are about normal including CBC, basic metabolic profile, renal profile. Patient has no active pulmonary issues, and he is hemodynamically stable blood pressure seems to be a bit on the high side. Patient was reevaluated today on 11/23/2021, patient is basically about the same, his speech is about the same, continues to have significant expressive aphasia. Comprehension remains intact. Labs today were unremarkable including CBC and basic metabolic profile. Transesophageal echocardiogram done today was basically unremarkable. No evidence of vegetations. And no shunting across the atrial septum Objective - Vital Signs Vital signs: Vital Signs Temp 97.8 F 11/23/21 08:00 Pulse 75 11/23/21 12:00 Resp 6 L 11/23/21 12:00 BP 119/79 11/23/21 12:00 Pulse Ox 97 11/23/21 12:00 Intake & Output 11/22/21 11/23/21 11/23/21 18:59 06:59 18:59 Intake Total 1300 900 Output Total 1750 950 600 Balance -450 -50 -600 Weight 66 kg Intake: IV 1300 900 Sodium Chloride 0.9% 1, 1299 900 000 ml @ 75 mls/hr IV . [id number] [facility] Rx#:[id number] Output: Urine 1750 950 600 Other: Voiding Method Urinal Urinal Urinal - Exam Physical Exam: Revealed 51-year-old white male, in no distress, continues to have expressive aphasia. HEENT: Micheline, EOMI, no nystagmus, right facial weakness is noted [Neck is supple.] [No neck masses.] [No thyromegaly.] [No JVD.] Chest: [Clear throughout, no crackles, no rhonchi, no wheezes.] Cardiac Exam: [Normal S1 and S2, no S3 gallop, no murmur.] Abdomen: [Soft, nontender, no megaly, no rebound, no guarding, normal bowel sounds.] Extremities: [No clubbing, no edema, no cyanosis.] Neurological Exam:pupils are equal, round and reacting to light, visual acosta are full on confrontation, with no neglect on double simultaneous stimulation. His extraocular muscles are intact with no nystagmus. tongue deviates to the right. Musculoskeletal: No deformities, no limitation in range of motion. Tone and bulk of muscles is normal. - Labs CBC & Chem 7: 11/22/21 06:06 11/22/21 06:06 Labs: Abnormal Lab Results - Last 24 Hours (Table) 11/22/21 Range/Units 06:06 HDL Cholesterol 38.70 L (40.00-60.00) mg/dL Assessment and Plan Assessment: Acute ischemic CVA with severe dysarthria and expressive aphasia and possibly right facial weakness. Status post TPA. Severe dysphagia secondary to above. History of mild asthma presently asymptomatic. History of nicotine dependence. History of hypertension. Positive drug screen for amphetamines, methamphetamines, and marijuana. Recommendation: Continue present supportive care measures. Likely transfer out of the ICU if cleared by neurology. Will follow on as needed basis. Time with Patient: Less than 30
[2021-11-23 14:32] VITALS: BP 127/79; PULSE 82; RESP 21
--- NOTE | 2021-11-23 15:03 | P.DS ---
Providers Date of admission: 11/21/21 01:26 Expected date of discharge: 11/23/21 Attending physician: Latosha Hester MD Consults: 11/21/21 01:26 Consult Physician Routine Consulting Provider: William Garner Consult Reason/Comments: icu Do you want consulting provider notified?: Yes Consult Physician Routine Consulting Provider: Charlene Montenegro Consult Reason/Comments: cva Do you want consulting provider notified?: Yes 11/21/21 09:31 Consult Physician Routine Consulting Provider: Nadir Scott Consult Reason/Comments: CVA, post TPA administration Do you want consulting provider notified?: Already Contacted 11/22/21 16:38 Consult Physician Routine Consulting Provider: Saul Starks Consult Reason/Comments: Acute stroke, MARLENE r/o embolic source Do you want consulting provider notified?: Yes Primary care physician: Stated None Hospital Course: Acute Stroke Pt presented with aphasia and difficulty swallowing. Rec'd tPA in the ER, then was sent to the ICU. Neuro consulted. Pt failed bedside swallow initially, but then recovered to be able to tolerate modified swallow diet. Treated with rectal ASA, then transitioned to oral ASA, Plavix, Statin. Initial CTH was neg for stroke, then 24 hour CTH f/u after tPA showed right temporoparietal stroke but no hemorrhage. Pt also had MRI of brain confirming temporoparietal stroke, and MRA H/N which showed clean vasculature. There was some consideration of embolic origin of stroke given smaller section of stroke identified on the MRI in the posterior left temporal lobe. Therefore, cardiology consulted and MARLENE done, which was negative for PFO, shunting, or thrombus. TTE showed good EF, no WMA. Pt d/c'd with outpatient ST referral and instructions to f/u with PCP with prescriptions for ASA/Plavix/Statin, and formoterol. Moderate persistent asthma discharged on formoterol Nicotine Use recommend cessation I spent 38 minutes coordinating this discharge. Assessment: Gen: awake, alert HEENT: normocephalic, atraumatic, good hearing acuity, moist mucous membranes Resp: good air exchange, breathing comfortably with no accessory muscle use CVS: good distal perfusion x 4, GI: soft, NTTP, ND : no SPT, no CVAT, anderson catheter not present MSK: no pitting edema, no clubbing Neuro: moving all extremities, expressive aphasia Psych: cooperative Patient Condition at Discharge: Serious Plan - Discharge Summary Discharge Rx Participant: No New Discharge Prescriptions: New Clopidogrel [Plavix] 75 mg PO DAILY #30 tab Aspirin 81 mg PO DAILY #30 tab Atorvastatin [Lipitor] 40 mg PO DAILY #30 tab Formoterol Fumarate [Perforomist] 20 mcg INHALATION RT-BID #1 each Discharge Medication List Aspirin 81 mg PO DAILY #30 tab 11/23/21 [Rx] Atorvastatin [Lipitor] 40 mg PO DAILY #30 tab 11/23/21 [Rx] Clopidogrel [Plavix] 75 mg PO DAILY #30 tab 11/23/21 [Rx] Formoterol Fumarate [Perforomist] 20 mcg INHALATION RT-BID #1 each 11/23/21 [Rx] Follow up Appointment(s)/Referral(s): None,Stated [Primary Care Provider] - 1-2 days Discharge Disposition: HOME SELF-CARE
[2021-11-24] MEDS ORDERED: ATORVASTATIN 40 MG TAB PO SCH (09:00)
== END 2021-11-23 16:05 | disposition home or self-care (01) | DRG 63 ==
LOC: EC 00:05 → 2SICU 01:26
PROVIDERS: ADMIT Internal Medicine; ATTEND Internal Medicine
PROC: 3E03317 Introduction of Other Thrombolytic into Peripheral Vein, Percutaneous Approach (ICD-10-PCS; principal; 2021-11-21)
PROC: B246ZZ4 Ultrasonography of Right and Left Heart, Transesophageal (ICD-10-PCS; 2021-11-23)
DX: I63.412 Cerebral infarction due to embolism of left middle cerebral artery (principal); R68.84 Jaw pain; R47.01 Aphasia; R29.810 Facial weakness; F17.200 Nicotine dependence, unspecified, uncomplicated; I10 Essential (primary) hypertension; J45.40 Moderate persistent asthma, uncomplicated; R13.10 Dysphagia, unspecified; R29.707 NIHSS score 7; Z20.822 Contact with and (suspected) exposure to COVID-19; F15.10 Other stimulant abuse, uncomplicated; W01.0XXA Fall on same level from slipping, tripping and stumbling without subsequent striking against object, initial encounter; W20.8XXA Other cause of strike by thrown, projected or falling object, initial encounter; Z86.73 Personal history of transient ischemic attack (TIA), and cerebral infarction without residual deficits
CPT/HCPCS: 36415; 37195; 70450; 70496; 70498; 70544; 70549; 70551; 71045; 80053; 80061; 80306; 83036; 84484; 85025; 85610; 85730; 87635; 93005; 93270; 93306; 93312; 93320; 93325; 94640; 99291

== ENCOUNTER → 2023-02-16 | Outpatient (CLI) | payer OTHER ==
--- NOTE | 2023-02-16 10:12 | CT ---
EXAMINATION TYPE: CT chest wo con DATE OF EXAM: 02/16/2023 COMPARISON: None HISTORY: 52-year-old male R93.89 Difficulty breathing. TECHNIQUE: Contiguous axial scanning of the chest without IV contrast. Coronal and sagittal reconstru ctions performed. CT DLP: 235.2 mGycm Automated exposure control for dose reduction was used. FINDINGS: Heart normal size without pericardial effusion. Aorta normal caliber with conventional arch vessel branching anatomy. Trace bilateral gynecomastia. No thoracic lymphadenopathy by CT size criteria. There is COPD with advanced emphysema, severe changes in the upper lungs. There is some clustered nod ularity posterior left upper lobe ranging in size between 6 mm and 1.1 cm. There is minimal 5 mm nodularity lateral right upper lobe, axial image 12 could be reassessed at foll ow-up. No consolidation or pleural effusion. Visualized upper abdomen shows no gross abnormality. Bones: No osseous destructive process. IMPRESSION: 1. COPD WITH SEVERE EMPHYSEMATOUS CHANGE. 2. SOME CLUSTERED NODULARITY RANGING IN SIZE BETWEEN 6 MM AND 1.1 CM IN THE POSTERIOR LEFT UPPER LOBE . EARLY LUNG CANCER NOT EXCLUDED. THREE-MONTH FOLLOW-UP CT CHEST TO REASSESS. FOLLOW-UP WITH PULMONAR Y MEDICINE. 3. THE NONSPECIFIC 5 MM RIGHT UPPER LOBE PULMONARY NODULE CAN ALSO BE REASSESSED AT THAT TIME.
== END | disposition home or self-care (01) ==
LOC: RADCTMAIN 08:53
PROVIDERS: ATTEND Family Medicine
DX: J43.9 Emphysema, unspecified (principal); R91.1 Solitary pulmonary nodule; R93.89 Abnormal findings on diagnostic imaging of other specified body structures
CPT/HCPCS: 71250

== ENCOUNTER → 2023-03-23 | Outpatient (CLI) | payer OTHER ==
--- NOTE | 2023-03-23 21:43 | PE ---
EXAMINATION TYPE: PET CT fusion skull to thigh DATE OF EXAM: 03/23/2023 CLINICAL INDICATION:Male, 52 years old with history of R93.89; TECHNIQUE: Following the intravenous administration of 12.37 mCi of F-18 FDG, whole body images are performed from the skull base to the midthigh. Images are reviewed on the computer in the coronal, axial, and sagittal planes. Reconstructed rotating images are created on independent workstation and reviewed on the computer. A non-contrast CT is performed in conjunction with the PET scan. Glucose level 122 mg/dL COMPARISON: CT 02/16/2023, PET/CT None, FINDINGS: Mediastinal SUV mean is 1.0. Hepatic parenchyma SUV mean is 1.7. SKULL BASE AND NECK: No suspicious radiotracer activity. CHEST, MEDIASTINUM, AND HILAR REGION: Right upper lung 9 x 6 mm max SUV 0.7. ABDOMEN AND PELVIS: No suspicious radiotracer activity. MUSCULOSKELETAL STRUCTURES: No suspicious radiotracer activity. OTHER CT: Mild gynecomastia changes. Scattered colonic diverticula moderate stool burden throughout t he colon. Moderate to severe emphysema changes most pronounced in lung apices. IMPRESSION: Left upper lung nodule without FDG activity findings most compatible scarring/atelectasis superimpose d on moderate to severe emphysema. Continued surveillance with CT recommended.
== END | disposition home or self-care (01) ==
LOC: RADPETMAIN 06:56
PROVIDERS: ATTEND Family Medicine
DX: J43.9 Emphysema, unspecified (principal); R91.1 Solitary pulmonary nodule; R93.89 Abnormal findings on diagnostic imaging of other specified body structures
CPT/HCPCS: 78815; A9552